=== PATIENT | female | born 1965 | race Caucasian/White ===

== ENCOUNTER 2017-03-21 17:08 | Inpatient (IN) | payer MEDICAID ==
[~2017-03-21] VITALS: Ht 160 cm; Wt 51.6 kg
[~2017-03-21 17:08] MED LIST: ALBU6.7H INH; AMPH30TA2 PO; GABA300C10 PO; HYDR25CA PO; HYDR25TA6 PO; PRAZ2CAP2 PO; QUET50TA5 PO; TIOT18CA INH; TRAZ50TA18 PO
[2017-03-21] MEDS ORDERED: NALOXONE 0.4 MG/ML, 1ML ONE (17:17)
[2017-03-21] MEDS ORDERED: NALOXONE 0.4 MG/ML, 1ML IVPush ONE (17:30)
[2017-03-21] MEDS ORDERED: SODIUM CHLORIDE 0.9% 1,000ML IVBOLUS ONE (17:30)
[2017-03-21] MEDS ORDERED: NALOXONE 1 MG/ML, 2ML ONE (17:39)
[2017-03-21 17:46] LABS: ASPARTATE AMINO TRANSFERASE 9 U/L (15-37); BLOOD UREA NITROGEN 13 mg/dL (7-18)
[2017-03-21 17:46] LABS: DAU SCREEN DISCLAIMER
[2017-03-21 17:49] LABS: ACETAMINOPHEN 3 mcg/mL (10-30)
[2017-03-21] MEDS ORDERED: NALOXONE 1 MG/ML, 2ML IVPush ONE (18:00)
[2017-03-21 18:05] LABS: PATH.CAST-FLAG NOT PRESENT; SPERM-FLAG NOT PRESENT; SRC-FLAG NOT PRESENT; XTAL-FLAG NOT PRESENT; YLC-FLAG NOT PRESENT
[2017-03-21] MEDS ORDERED: LORazepam 0.5MG TABLET PO PRN (19:00)
[2017-03-21] MEDS ORDERED: LORazepam 2 MG/ML, 1ML IV PRN ×3 (19:00)
[2017-03-21] MEDS ORDERED: DOCUSATE 100 MG CAPSULE PO PRN (19:00)
[2017-03-21] MEDS ORDERED: LORazepam 1MG TABLET PO PRN ×2 (19:00)
[2017-03-21] MEDS ORDERED: ONDANSETRON 2MG/ML, 2ML IVPush PRN (19:00)
[2017-03-21] MEDS ORDERED: POLYETHYLENE GLYCOL 17 GM PACKET PO PRN (19:00)
[2017-03-21] MEDS ORDERED: CEFTRIAXONE PMX 1GM/50ML 50 ML IV ONE (19:00)
[2017-03-21] MEDS ORDERED: CEFTRIAXONE PMX 1GM/50ML 50 ML ONE (19:07)
[2017-03-21 19:39] LABS: HCG UR OBC PASS
[2017-03-21] MEDS ORDERED: QUET100T PO (19:42)
[2017-03-21 20:12] VITALS: BP 127/82
[2017-03-21 20:22] VITALS: BP 124/74
[2017-03-21] MEDS: ENOXAPARIN 40 MG/0.4 ML SQ SCH (20:43)
[2017-03-21] MEDS: NS + 20MEQ KCL 1,000 ML IV SCH (20:43)
[2017-03-21 20:44] VITALS: BP 125/82
[2017-03-22 02:21] VITALS: BP 138/89
[2017-03-22] MEDS: NS + 20MEQ KCL 1,000 ML IV SCH (06:09)
[2017-03-22 08:00] VITALS: BP 136/82
[2017-03-22 14:25] VITALS: BP 137/84
[2017-03-22] MEDS: ENOXAPARIN 40 MG/0.4 ML SQ SCH (18:09)
[2017-03-22] MEDS: NICOTINE 14MG/24 HR PATCH.TD24 TD SCH (18:09)
[2017-03-22 18:54] VITALS: BP 150/88
[2017-03-22] MEDS ORDERED: CEFTRIAXONE PMX 1GM/50ML 50 ML IV SCH (19:00)
[2017-03-23] MEDS: ACETAMINOPHEN 325 MG TABLET PO PRN (00:12)
[2017-03-23 02:33] VITALS: BP 152/92
[2017-03-23 06:02] LABS: ASPARTATE AMINO TRANSFERASE 12 U/L (15-37); BLOOD UREA NITROGEN 13 mg/dL (7-18)
[2017-03-23 07:09] VITALS: BP 153/96
[2017-03-23] MEDS: MULTIVITAMIN 1 TABLET PO SCH (10:30)
[2017-03-23] MEDS: FOLIC ACID 1 MG TABLET PO SCH (10:30)
[2017-03-23] MEDS: THIAMINE 100MG TABLET PO SCH (10:30)
[2017-03-23] MEDS ORDERED: CEFD300C37 PO (13:44)
[2017-03-23] MEDS ORDERED: FOLI-17 PO (13:44)
[2017-03-23] MEDS ORDERED: THIA100T6 PO (13:44)
[2017-03-23] MEDS ORDERED: LACT1CAP24 PO (13:44)
[2017-03-23] MEDS ORDERED: AMLO5TAB2 PO (13:44)
[2017-03-23] MEDS ORDERED: MULT1TAB60 PO (13:44)
[2017-03-23 15:09] VITALS: BP 143/90
[2017-03-23] MEDS: CEFDINIR 300 MG CAPSULE PO SCH (16:03)
[2017-03-23] MEDS: AMLODIPINE 5 MG TABLET PO SCH (16:03)
[2017-03-23] MEDS: NICOTINE 14MG/24 HR PATCH.TD24 TD SCH (16:04)
[2017-03-23] MEDS: ENOXAPARIN 40 MG/0.4 ML SQ SCH (17:13)
[2017-03-23 20:00] VITALS: BP 154/90
[2017-03-24 01:20] VITALS: BP 150/95
[2017-03-24 07:19] VITALS: BP 152/97
[2017-03-24] MEDS: THIAMINE 100MG TABLET PO SCH (08:14)
[2017-03-24] MEDS: AMLODIPINE 5 MG TABLET PO SCH (08:14)
[2017-03-24] MEDS: FOLIC ACID 1 MG TABLET PO SCH (08:14)
[2017-03-24] MEDS: MULTIVITAMIN 1 TABLET PO SCH (08:14)
[2017-03-24] MEDS ORDERED: FOLIC ACID 1 MG TABLET PO SCH (09:00)
[2017-03-24] MEDS: ACETAMINOPHEN 325 MG TABLET PO PRN (12:23)
[2017-03-24 13:47] VITALS: BP 163/91
[2017-03-24] MEDS: CEFDINIR 300 MG CAPSULE PO SCH (16:17)
[2017-03-24] MEDS: NICOTINE 14MG/24 HR PATCH.TD24 TD SCH (16:18)
[2017-03-24 17:37] VITALS: BP 137/95
[2017-03-24 19:36] VITALS: BP 114/80
[2017-03-24] MEDS: ENOXAPARIN 40 MG/0.4 ML SQ SCH (20:00)
[2017-03-24] MEDS: LORazepam 1MG TABLET PO PRN (21:16)
[2017-03-25 07:34] VITALS: BP 128/84
[2017-03-25] MEDS: FOLIC ACID 1 MG TABLET PO SCH (08:46)
[2017-03-25] MEDS: MULTIVITAMIN 1 TABLET PO SCH (08:46)
[2017-03-25] MEDS: AMLODIPINE 5 MG TABLET PO SCH (08:46)
[2017-03-25] MEDS: THIAMINE 100MG TABLET PO SCH (08:46)
[2017-03-25] MEDS: LORazepam 1MG TABLET PO PRN ×2 (11:55→16:34)
[2017-03-25] MEDS: CEFDINIR 300 MG CAPSULE PO SCH (14:19)
[2017-03-25] MEDS: NICOTINE 14MG/24 HR PATCH.TD24 TD SCH (16:25)
[2017-03-25] MEDS: ENOXAPARIN 40 MG/0.4 ML SQ SCH (19:00)
[2017-03-25 20:00] VITALS: BP 110/73
== END 2017-03-25 22:54 | DRG 917 ==
LOC: SUATTDRO 18:45 → ED 18:46 → EDIP 18:53 → 4EST 19:59 → 3E 03-24 17:34
PROVIDERS: ADMIT Family Medicine; ATTEND Internal Medicine
PROC: 0T9B70Z Drainage of Bladder with Drainage Device, Via Natural or Artificial Opening (ICD-10-PCS; principal; 2017-03-21)
DX: T43.592A Poisoning by other antipsychotics and neuroleptics, intentional self-harm, initial encounter (principal); G92 Toxic encephalopathy; N39.0 Urinary tract infection, site not specified; E87.0 Hyperosmolality and hypernatremia; T43.212A Poisoning by selective serotonin and norepinephrine reuptake inhibitors, intentional self-harm, initial encounter; T40.4X2A Poisoning by other synthetic narcotics, intentional self-harm, initial encounter; F32.9 Major depressive disorder, single episode, unspecified; I10 Essential (primary) hypertension; E87.6 Hypokalemia; F10.129 Alcohol abuse with intoxication, unspecified; B96.20 Unspecified Escherichia coli [E. coli] as the cause of diseases classified elsewhere; Y92.89 Other specified places as the place of occurrence of the external cause; Z79.899 Other long term (current) drug therapy
CPT/HCPCS: 36415; 80053; 80307; 80329; 81001; 81025; 83735; 84100; 85025; 87077; 87086; 87186; 93005; 96361; 96365; 96375; J0696; J1650; J2310; J3480; G0480; J2060; J7030

== ENCOUNTER 2019-06-27 12:42 | Outpatient (CLI) | payer MEDICAID ==
[~2019-06-27 12:42] MED LIST changes: -ALBU6.7H INH; +ALBU6.7H8 INH; +AMLO-150 PO; +CEFD300C37 PO; +FOLI-17 PO; +LACT1CAP24 PO; +MULT1TAB60 PO; +QUET100T PO; +THIA100T67 PO; -TRAZ50TA18 PO; +TRAZ50TA66 PO
== END 2019-06-27 23:59 | disposition home or self-care (01) ==
LOC: RAD 12:42
PROVIDERS: ATTEND Nurse Practitioner
DX: J98.11 Atelectasis (principal); M47.814 Spondylosis without myelopathy or radiculopathy, thoracic region; N20.0 Calculus of kidney
CPT/HCPCS: 71250